=== PATIENT | male | born 1990 | race American Indian/Alaskan Native ===

== ENCOUNTER 2016-06-29 20:56 | Emergency (ER) | payer MEDICAID ==
[2016-06-29] MEDS ORDERED: HALDOL ONE (21:04)
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
[2016-06-29 21:30] LABS: Basophils % (Auto) 0.5 % (0.0-1.8); Eosinophils % (Auto) 0.3 % (0.0-4.3); Hematocrit 49.9 % (35.5-45.6); Hemoglobin 16.9 gm/dl (11.8-15.2); Mean Corpuscular HGB Conc 34 % (32-34); Mean Corpuscular Hemoglobin 30 pg (28-32); Mean Corpuscular Volume 89 fl (84-94); Platelet Count 226 K/mm3 (140-440); Red Blood Count 5.64 M/mm3 (3.65-5.03); Red Cell Distribution Width 15.3 % (13.2-15.2); White Blood Count 12.1 K/mm3 (4.5-11.0)
[2016-06-29 21:46] LABS: Urine Drugs of Abuse Note Disclamer
[2016-06-29 21:52] LABS: Anion Gap 22 mmol/L; BUN/Creatinine Ratio 14.16; Blood Urea Nitrogen 17 mg/dL (9-20); Calcium 9.5 mg/dL (8.4-10.2); Carbon Dioxide 23 mmol/L (22-30); Chloride 96.9 mmol/L (98-107); Glucose 178 mg/dL (75-100); Potassium 4.3 mmol/L (3.6-5.0); Sodium 138 mmol/L (137-145)
[2016-06-29 21:57] LABS: Bilirubin,Urine NEG (Negative); Blood,Urine SM (Negative); Ketones,Urine NEG (Negative); Leukocyte Esterase,Urine NEG (Negative); Mucus,Urine FEW /HPF; Nitrite,Urine NEG (Negative); Protein,Urine <15 mg/dL mg/dL (Negative)
[2016-06-30] MEDS ORDERED: HALDOL IM ONE (02:08)
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
[2016-07-01] MEDS ORDERED: XANAX PO ONE (23:27)
--- NOTE | 2016-07-02 09:15 | Event Note ---
Date: 07/02/16 Vital signs reviewed and appreciated. No recent events. Patient awaiting psychiatric placement. Patient specifically has no infectious symptoms. He is afebrile with reassuring vital signs. Minimal leukocytosis is appreciated. However, given lack of constitutional symptoms such as fever, altered mental status, focal exam findings, it is very unlikely that the patient has a serious bacterial infection or illness, and I see no immediate medical need or necessity to repeat a white blood cell count/CBC on this patient, especially as a white blood cell count in and of itself without be appropriate supporting clinical features, is a very nonspecific test, and by itself cannot rule in a serious bacterial infection. Overall, the patient's clinical picture is not consistent with serious bacterial infection, and there does not appear to be any medical contraindication to psychiatric admission this evaluation/placement at this time. Vital Signs 06/29/16 06/29/16 06/30/16 21:58 22:05 09:42 Temperature 98.7 F 98.8 F 98 F Pulse Rate 87 87 118 H Respiratory 18 16 Rate Blood Pressure 152/78 Blood Pressure 153/75 138/91 [Left] O2 Sat by Pulse 17 L 99 99 Oximetry 06/30/16 07/01/16 07/01/16 22:00 07:46 08:20 Temperature 98.6 F 98.5 F Pulse Rate 91 H 88 Respiratory 16 16 16 Rate Blood Pressure Blood Pressure 133/87 136/90 [Left] O2 Sat by Pulse 99 99 99 Oximetry 07/01/16 07/02/16 20:00 07:30 Temperature 97.5 F L 98.2 F Pulse Rate 110 H 93 H Respiratory 16 18 Rate Blood Pressure Blood Pressure 144/84 144/98 [Left] O2 Sat by Pulse 98 97 Oximetry
[2016-07-02] MEDS ORDERED: ATIVAN IM PRN (13:42)
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
[2016-07-02] MEDS ORDERED: ATIVAN PO PRN (18:37)
[2016-07-02 21:11] VITALS: BP 131/80
== END 2016-07-02 22:49 | disposition home or self-care (01) ==
LOC: ED 20:56 → EEVIPCON 20:56 → ED 07-02 22:49
DX: F91.9 Conduct disorder, unspecified (principal); R45.1 Restlessness and agitation; F31.9 Bipolar disorder, unspecified; F20.9 Schizophrenia, unspecified
CPT/HCPCS: 36415; 80048; 80307; 81001; 85025; 96372; 99285; G0480; J1630; J2060; 80320

== ENCOUNTER 2018-06-22 16:14 | Emergency (ER) | payer MEDICAID ==
[2018-06-22 16:47] VITALS: BP 138/87
--- NOTE | 2018-06-22 16:47 | Emergency Department Report ---
Chief Complaint: Nausea/Vomiting/Diarrhea Stated Complaint: VOMITING/DIARRHEA Time Seen by Provider: 06/22/18 16:44 - HPI History of Present Illness: This is a 27 y.o. male that presents with vomiting and diarrhea x 2 days. - ROS Review of Systems: vomiting and diarrhea - Exam Vital Signs: Vital Signs 06/22/18 16:44 Temperature 98.4 F Pulse Rate 116 H Respiratory 18 Rate Blood Pressure 138/87 O2 Sat by Pulse 98 Oximetry MSE screening note: Focused history and physical exam performed. Due to findings the following was ordered: Fast track for further evaluation. ED Disposition for MSE Condition: Stable
[2018-06-22] MEDS ORDERED: NACL 0.9% 1000 ML 1,000 ML IV ONE (18:25)
[2018-06-22] MEDS ORDERED: ZOFRAN IV ONE (18:25)
[2018-06-22 18:26] LABS: Basophils % (Auto) 0.6 % (0.0-1.8); Eosinophils # (Auto) 0.1 K/mm3 (0.0-0.4); Eosinophils % (Auto) 1.4 % (0.0-4.3); Hematocrit 48.4 % (35.5-45.6); Hemoglobin 17.1 gm/dl (11.8-15.2); Lymphocytes # (Auto) 1.7 K/mm3 (1.2-5.4); Lymphocytes % (Auto) 24.7 % (13.4-35.0); Mean Corpuscular HGB Conc 35 % (32-34); Mean Corpuscular Volume 90 fl (84-94); Monocytes # (Auto) 0.9 K/mm3 (0.0-0.8); Monocytes % (Auto) 12.7 % (0.0-7.3); Platelet Count 176 K/mm3 (140-440); Red Blood Count 5.39 M/mm3 (3.65-5.03); Red Cell Distribution Width 14.5 % (13.2-15.2)
[2018-06-22 18:37] LABS: BUN/Creatinine Ratio 18; Blood Urea Nitrogen 24 mg/dL (9-20); Calcium 8.5 mg/dL (8.4-10.2); Hemolysis Index 13
--- NOTE | 2018-06-22 19:03 | Emergency Department Report ---
Vomiting/Diarrhea - HPI Chief Complaint: Nausea/Vomiting/Diarrhea Stated Complaint: VOMITING/DIARRHEA Time Seen by Provider: 06/22/18 16:44 Severity: mild Nausea/Vomiting Severity: Mild Diarrhea Severity: Mild Pain Severity: None Symptoms: Yes Watery Diarrhea, Yes Able to Tolerate Fluids, No Bloody diarrhea, No Fever, No Recent Unusual Foods, No Recent Untreated Water, No Recent use of Antibiotics, No Family w/ Similar Symptoms, No Contacts w/ Similar Symptoms, No Rash, No Hematuria, No Recent URI Symptoms Other History: Pt is a 27 yo male who presents to the ED with c/o N/V/D that began three days ago after eating at [employer]. He denies any fever, abdominal pain, blood in the vomit or stool, urinary sx, recent abx, water from a different source, or any other sx. He has been tolerating liquids. No sick contacts. ED Review of Systems ROS: Stated complaint: VOMITING/DIARRHEA Other details as noted in HPI Comment: All other systems reviewed and negative ED Past Medical Hx - Past Medical History Previous Medical History?: Yes Additional medical history: bipolar, schizophrenic - Surgical History Past Surgical History?: Yes Additional Surgical History: right eye surgery - Social History Smoking Status: Never Smoker - Medications Home Medications: Home Medications Medication Instructions Recorded Confirmed Last Taken Type Divalproex Dr [Giorgio Rodney] 500 mg PO BID 07/02/16 07/02/16 Unknown History Loratadine [Claritin] 10 mg PO DAILY 07/02/16 07/02/16 Unknown History Ranitidine HCl [Acid Control] 150 mg PO BID 07/02/16 07/02/16 Unknown History Ziprasidone [Geodon] 80 mg PO BID 07/02/16 07/02/16 Unknown History amLODIPine [Norvasc] 10 mg PO DAILY 07/02/16 07/02/16 Unknown History clonazePAM [Klonopin] 1 mg PO TID 07/02/16 07/02/16 Unknown History traZODone [Desyrel] 100 mg PO QHS 07/02/16 07/02/16 Unknown History Ondansetron [Zofran Odt] 4 mg PO Q8HR PRN #10 tab.rapdis 06/22/18 Unknown Rx Vomiting Diarrhea Exam - Exam General: Vital signs noted. No distress. Alert and acting appropriately. HEENT: No Pharyngeal Erythema, No Pharyngeal Exudates, No Moist Mucous Membranes (mildly dry), No Rhinorrhea, No Conjuctival Injection, No Frontal Tenderness, No Maxillary Tenderness Neck: No Adenopathy, No Rigidity Lungs: Yes Clear Lung Sounds, No Good Air Exchange, No Wheezes, No Stridor, No Cough, No Nasal Flaring, No Retractions, No Use of Accessory Muscles Heart exam: Murmur: No, Tachycardia: Yes (mildly) Abdomen: Tenderness: No, Peritoneal Signs: No, Distention: No, Hyperactive Bowel sounds: Yes Skin exam: Rash: No, Edema: No, Normal turgor: Yes Neurologic: Alert and oriented, no deficits. Musculoskeletal: Unremarkable. ED Course Vital Signs 06/22/18 16:44 Temperature 98.4 F Pulse Rate 116 H Respiratory 18 Rate Blood Pressure 138/87 O2 Sat by Pulse 98 Oximetry ED Medical Decision Making - Lab Data Result diagrams: 06/22/18 18:06 06/22/18 18:06 Laboratory Results - last 24 hr 06/22/18 06/22/18 18:06 18:06 WBC 7.0 RBC 5.39 H Hgb 17.1 H Hct 48.4 H MCV 90 MCH 32 MCHC 35 H RDW 14.5 Plt Count 176 Lymph % (Auto) 24.7 Crosby % (Auto) 12.7 H Eos % (Auto) 1.4 Baso % (Auto) 0.6 Lymph # 1.7 Crosby # 0.9 H Eos # 0.1 Baso # 0.0 Seg Neutrophils % 60.6 Seg Neutrophils # 4.2 Sodium 133 L Potassium 4.2 Chloride 92.7 L Carbon Dioxide 28 Anion Gap 17 BUN 24 H Creatinine 1.3 Estimated GFR > 60 BUN/Creatinine Ratio 18 Glucose 98 Calcium 8.5 - Medical Decision Making Pt presents to the ED with N/V/D that began three days ago after eating [employer]. No fever, no abdominal pain, no urinary sx, no recent travel/abx, or any other sx. Labs show evidence of mild dehydration. Pt is non toxic appearing. Pt given 1 L of fluids in the ED. Pt given zofran and states he feels much bet ter. He has been tolerating PO intake at home without difficulty. Able to tolerate PO intake while in the ED. Advised to follow up with primary care doctor in the next 2-3 days. Father present during discussion. Discussed to continue drinking plenty of fluids and bland diet. Advised to return to the ED for any new or worsening symptoms or if symptoms do not improve. - Differential Diagnosis Gastroenteritis, N/V/D, Viral syndrome Critical care attestation.: If time is entered above; I have spent that time in minutes in the direct care of this critically ill patient, excluding procedure time. ED Disposition Clinical Impression: Nausea vomiting and diarrhea Disposition: TO HOME OR SELFCARE Is pt being admited?: No Does the pt Need Aspirin: No Condition: Stable Instructions: Acute Nausea and Vomiting (ED) Additional Instructions: Follow up with primary care doctor in the next 2-3 days. Take medication as prescribed as needed for nausea/vomiting. Continue to drink plenty of fluids, eat a bland diet. Return to the emergency room if any new or worsening symptoms. Prescriptions: Ondansetron [Zofran Odt] 4 mg PO Q8HR PRN #10 tab.rapdis PRN Reason: Nausea And Vomiting Referrals: JONO FAITHBAKER MD CRUZ [Primary Care Provider] - 3-5 Days Time of Disposition: 19:24 Print Language: TURKISH
== END 2018-06-22 19:40 | disposition home or self-care (01) ==
LOC: ED 16:14
DX: R11.2 Nausea with vomiting, unspecified (principal); R19.7 Diarrhea, unspecified
CPT/HCPCS: 36415; 80048; 85025; 96367; 96374; 99283; J2405; J7030